=== PATIENT | female | born 1990 ===

== ENCOUNTER 2021-08-05 12:41 | Outpatient (REF) | payer SELFPAY ==
[2021-08-05 13:33] LABS: Source Nasal/Nares
[2021-08-05 20:21] LABS: COVID-19 PCR Negative (Negative)
== END 2021-08-05 12:42 | disposition home or self-care (01) ==
LOC: LBO 12:41
PROVIDERS: Visit Provider Family Medicine
DX: Z20.822 Contact with and (suspected) exposure to COVID-19 (principal)
CPT/HCPCS: 87635

== ENCOUNTER 2022-07-23 12:15 | Outpatient (REF) | payer OTHER, SELFPAY ==
--- NOTE | 2022-07-23 11:45 | PAPFT_PTH ---
PATIENT: Kori Angelo LOC: [facility] U#:[id number] AGE/SX: 32/F ROOM: RE07/23/[address]: Helena Cordon MD : [id number] BED: DIS: 07/23/2022 SPEC #: [id number] RECD: 07/23/22 13:13 STATUS: SHELLEY REQ #: [id number] LEI: 07/23/22 11:[address]: Helena Cordon DEPT: [facility] Cytology RECD BY: Susan Nguyen ENTERED: 07/23/22 13:13 SP TYPE: PAPFT OTHR DR: Unknown,Unknown Tissues: 1 - CX/ENDOCX FOR PAP SMEARS Procedures: PAP THIN PREP/[facility] Screening HPV DNA PROBE Comments: [id number]
== END 2022-07-23 12:16 | disposition home or self-care (01) ==
LOC: LBN 12:15
PROVIDERS: Visit Provider Obstetrics & Gynecology
DX: Z12.4 Encounter for screening for malignant neoplasm of cervix (principal); Z11.51 Encounter for screening for human papillomavirus (HPV)
CPT/HCPCS: 88142; 87624

== ENCOUNTER 2023-11-19 16:18 | Outpatient (REF) | payer OTHER, SELFPAY | END 2023-11-19 16:19 | disposition home or self-care (01) | LOC: LBN 16:18 | PROVIDERS: Visit Provider Nurse Practitioner Family | DX: Z20.818 Contact with and (suspected) exposure to other bacterial communicable diseases (principal) | CPT/HCPCS: 87070 ==

== ENCOUNTER 2024-03-14 18:24 | Outpatient (REF) | payer OTHER, SELFPAY ==
[2024-03-14 21:06] LABS: HCT 40.9 % (36.0-46.0); HGB 13.8 g/dL (11.2-15.7); MCH 28.6 pg (27.0-33.0); MCHC 33.7 % (32.0-36.0); MCV 85 fL (80-95); MPV 10.5 fL (8.0-11.0); Platelet Count 292 10^3/uL (130-400); RBC 4.82 10^6/uL (3.93-5.22); RDW 12.4 % (11.7-14.6); RDW-SD 38.2 fL
[2024-03-14 21:42] LABS: Anion Gap 7.7 mmol/L (3-11); BUN 13 mg/dL (7-18); CO2 28.3 mmol/L (21.0-32.0); CREATININE 0.9 mg/dL (0.55-1.02); Calcium 9.1 mg/dL (8.5-10.1); Calculated LDL 127 mg/dL (<100); Chloride 106 mmol/L (98-107); Cholesterol 200 mg/dL (<200); Glucose 134 mg/dL (74-106); HDL Cholesterol 66 mg/dL (40-60); Sodium 142 mmol/L (136-145); TSH (W/Ref FT4) 1.38 uIU/mL (0.36-3.74); Triglyceride 36 mg/dL (<150)
== END 2024-03-14 18:25 | disposition home or self-care (01) ==
LOC: NCHCN 18:24
PROVIDERS: Visit Provider Family Medicine
DX: R53.83 Other fatigue (principal); E55.9 Vitamin D deficiency, unspecified; R79.89 Other specified abnormal findings of blood chemistry; Z13.220 Encounter for screening for lipoid disorders; Z13.228 Encounter for screening for other metabolic disorders
CPT/HCPCS: 80048; 80061; 82306; 85027; 84443

== ENCOUNTER 2024-05-21 16:12 | Outpatient (CLI) | payer OTHER, SELFPAY ==
--- NOTE | 2024-05-21 15:00 | DI.RAD_ITS ---
Exam(s) XR ANKLE RT COMPLETE EXAM: XR ANKLE RT COMPLETE CLINICAL HISTORY: RIGHT ANKLE PAIN. TECHNIQUE: 2D digital imaging was performed. Three views. COMPARISON: No exams were available for comparison FINDINGS: BONES: No acute fracture is present. No fracture lines visible. No bony destructive lesion is seen. There are 2 screw cruise in the medial malleolus. Two screws are also present in the lateral malle olus. JOINTS: The ankle mortise is normally aligned. The joint space is maintained. Degenerative changes at distal tibial fibular joint. SOFT TISSUE: Normal. IMPRESSION: Postsurgical changes with screws in the malleoli. Degenerative changes distal tibial fibular joint. DATA REPOSITORY: RADIATION DOSE DELIVERED:
== END 2024-05-21 16:13 | disposition home or self-care (01) ==
LOC: DIORS 16:13
PROVIDERS: PCP Family Medicine; Visit Provider Student in an Organized Health Care Education/Training Program
DX: Z87.81 Personal history of (healed) traumatic fracture (principal); Z98.890 Other specified postprocedural states; M25.571 Pain in right ankle and joints of right foot
CPT/HCPCS: 73610